=== PATIENT | male | born 1990 | race Caucasian/White ===

== ENCOUNTER 2016-11-21 17:15 | Emergency (ER) | payer SELFPAY ==
--- NOTE | 2016-11-21 17:23 | UC ---
Lower Extremity/Ankle HPI - HPI Summary HPI Summary: 26 year old male with a history of club foot presents with complains of bilateral foot pain. - History of Current Complaint Stated Complaint: BILAT FOOT PAIN Time Seen by Provider: 11/21/16 17:22 - Allergies/Home Medications Allergies/Adverse Reactions: Allergies Allergy/AdvReac Type Severity Reaction Status Date / Time No Known Allergies Allergy Verified 11/21/16 17:33 Home Medications: Home Medications [id number]-[id number] [Excedrin Migraine 250-250-65 mg] 1 tab PO DAILY PRN 11/21/16 [History Confirmed 11/21/16] Review of Systems Constitutional: Negative Skin: Negative Eyes: Negative ENT: Negative Respiratory: Negative Cardiovascular: Negative Gastrointestinal: Negative Genitourinary: Negative Motor: Negative Neurovascular: Negative Musculoskeletal: Other: - bilateral foot pain Neurological: Negative Psychological: Negative All Other Systems Reviewed And Are Negative: Yes Physical Exam Triage Information Reviewed: Yes Eye Exam: Normal ENT Exam: Normal Dental Exam: Normal Neck exam: Normal Neck: Positive: 1 Respiratory Exam: Normal Cardiovascular Exam: Normal Abdominal Exam: Normal Musculoskeletal: Positive: Other: - bilateral foot pain Neurological Exam: Normal Psychological Exam: Normal Skin Exam: Normal Lower Extremity Course/Dx - Differential Dx/Diagnosis Provider Diagnoses: bilateral foot pain Discharge - Discharge Plan Condition: Stable Disposition: HOME Prescriptions: Meloxicam [Mobic] 7.5 mg PO BID WITH MEALS #30 tab Methylprednisolone [Medrol Dosepak 4 MG*] 4 mg PO .SEE TERESA INSTRUCTION #21 tab Triamcinolone 0.1% CREAM(NF) [Kenalog Cream 0.1%(NF)] 1 applic TOPICAL BID PRN # 2 tube PRN Reason: Itching Patient Education Materials: Eczema (ED), Foot Sprain (ED), Arthralgia (ED), Swollen Joint (ED)
[2016-11-21 17:33] VITALS: BP 136/82
== END 2016-11-21 17:55 | disposition home or self-care (01) ==
LOC: EDBD 17:15 → UCCORT 17:15
DX: M79.672 Pain in left foot (principal); M79.671 Pain in right foot
CPT/HCPCS: 99202; G0463

== ENCOUNTER 2019-07-18 18:20 | Emergency (ER) | payer BC ==
[2019-07-18 19:04] VITALS: BP 131/75
--- NOTE | 2019-07-18 19:40 | UC ---
Throat Pain/Nasal Chato HPI - HPI Summary HPI Summary: Pt presents c/o sudden onset of nasal congestion, cough,intermittent fever, chills and fatigue. X 3 days - History of Current Complaint Chief Complaint: UCGeneralIllness Stated Complaint: COUGH, FEVER, BODY ACHES Time Seen by Provider: 07/18/19 19:00 Hx Obtained From: Patient Onset/Duration: Sudden Onset, Lasting Days, Still Present Severity: Mild Pain Intensity: 6 Cough: Nonproductive Associated Signs & Symptoms: Positive: Fever - Epiglottits Risk Factors Epiglottis Risk Factors: Negative - Allergies/Home Medications Allergies/Adverse Reactions: Allergies Allergy/AdvReac Type Severity Reaction Status Date / Time No Known Allergies Allergy Verified 07/18/19 18:57 Home Medications: Home Medications Omeprazole 20 mg PO ONCE 07/18/19 [History Confirmed 07/18/19] Oxymetazoline 0.05% NASAL SPR* [Afrin 0.05% NASAL SPRAY*] 1 spray NASAL Q12H 4 Days #1 btl 07/18/19 [Rx] PMH/Surg Hx/FS Hx/Imm Hx Previously Healthy: Yes - Surgical History Surgical History: Yes Surgery Procedure, Year, and Place: club feet sx - Family History Known Family History: Positive: Cardiac Disease - Social History Occupation: Employed Full-time Lives: With Family Alcohol Use: Rare Substance Use Type: None Smoking Status (MU): Never Smoked Tobacco Have You Smoked in the Last Year: No - Immunization History Vaccination Up to Date: Yes Review of Systems All Other Systems Reviewed And Are Negative: Yes Constitutional: Positive: Fever, Chills, Fatigue Skin: Positive: Negative Eyes: Positive: Negative ENT: Positive: Sinus Congestion Respiratory: Positive: Cough Cardiovascular: Positive: Negative Gastrointestinal: Positive: Negative Genitourinary: Positive: Negative Motor: Positive: Negative Neurovascular: Positive: Negative Musculoskeletal: Positive: Myalgia Neurological/Mental Status: Positive: Negative Psychological: Positive: Negative Is Patient Immunocompromised?: No Physical Exam Triage Information Reviewed: Yes Appearance: Well-Appearing Vital Signs: Initial Vital Signs Temp 98 F 07/18/19 18:59 Pulse 92 07/18/19 18:59 Resp 16 07/18/19 18:59 BP 131/75 07/18/19 18:59 Pulse Ox 99 07/18/19 18:59 Vital Signs Reviewed: Yes Eye Exam: Normal ENT: Positive: Nasal congestion Dental Exam: Normal Neck exam: Normal Respiratory Exam: Normal Cardiovascular Exam: Normal Musculoskeletal Exam: Normal Neurological Exam: Normal Psychological Exam: Normal Skin Exam: Normal Throat Pain/Nasal Course/Dx - Differential Dx/Diagnosis Differential Diagnosis/HQI/PQRI: Influenza, Otitis Media, Pharyngitis, URI Provider Diagnosis: Viral syndrome Discharge ED - Sign-Out/Discharge Documenting (check all that apply): Patient Departure All imaging exams completed and their final reports reviewed: No Studies - Discharge Plan Condition: Stable Disposition: HOME Prescriptions: Oxymetazoline 0.05% NASAL SPR* [Afrin 0.05% NASAL SPRAY*] 1 spray NASAL Q12H 4 Days #1 btl Patient Education Materials: Viral Syndrome (ED) Referrals: [facility]IAN REFERRAL [Outside] - If Needed No Primary Care Phys,NOPCP [Primary Care Provider] - - Billing Disposition and Condition Condition: STABLE Disposition: Home - Attestation Statements Provider Attestation: I was available for consultation for this patient. I did not evaluate the patient or participate in any medical decision making or disposition decisions unless I am specifically named in the chart as having consulted on the patient. If I have consulted on the patient, please see my own ED note on the patient encounter. Trudi Gonzalez MD
[2019-07-18 19:49] LABS: Influenza A Molecular Negative (Negative); Influenza B Molecular Negative (Negative)
== END 2019-07-18 20:06 | disposition home or self-care (01) ==
LOC: UCCORT 18:20
DX: B34.9 Viral infection, unspecified (principal)
CPT/HCPCS: 99212; G0463